=== PATIENT | male | born 1995 | race Two or more races ===

== ENCOUNTER 2023-07-19 16:02 | Emergency (ER) | payer OTHER ==
[~2023-07-19] VITALS: Ht 175.3 cm; Wt 78.9 kg
[2023-07-19] MEDS ORDERED: ORPHENADRINE CITRATE 30 MG/ML AMPUL IM STA (17:41)
[2023-07-19] MEDS ORDERED: KETOROLAC TROMETHAMINE 30 MG VIAL IM STA (17:41)
== END 2023-07-19 20:06 | disposition home or self-care (01) ==
LOC: ER 16:03
DX: S46.811A Strain of other muscles, fascia and tendons at shoulder and upper arm level, right arm, initial encounter (principal); X58.XXXA Exposure to other specified factors, initial encounter; Y93.89 Activity, other specified; Y92.89 Other specified places as the place of occurrence of the external cause; Y99.9 Unspecified external cause status

== ENCOUNTER 2023-07-22 14:27 | Emergency (ER) | payer OTHER ==
[~2023-07-22] VITALS: Ht 175.3 cm; Wt 79.4 kg
[2023-07-22] MEDS ORDERED: ORPHENADRINE CITRATE 30 MG/ML AMPUL IM ONE (17:45)
[2023-07-22] MEDS ORDERED: KETOROLAC TROMETHAMINE 60 MG VIAL IM ONE (17:45)
== END 2023-07-22 20:20 | disposition home or self-care (01) ==
LOC: ER 14:27
DX: S43.491A Other sprain of right shoulder joint, initial encounter (principal); X50.9XXA Other and unspecified overexertion or strenuous movements or postures, initial encounter; Y93.89 Activity, other specified; Y92.89 Other specified places as the place of occurrence of the external cause